=== PATIENT | male | born 1985 | race Caucasian/White ===

== ENCOUNTER → 2020-04-30 11:51 | Outpatient (CLI) | payer OTHER, SELFPAY | PROVIDERS: Visit Provider Internal Medicine Pulmonary Disease | DX: Z22.7 Latent tuberculosis (principal) | CPT/HCPCS: 87070; 87116; 87186; 87205; 87206 ==

== ENCOUNTER → 2020-05-01 08:32 | Outpatient (CLI) | payer OTHER, SELFPAY | PROVIDERS: Visit Provider Internal Medicine Pulmonary Disease | DX: Z22.7 Latent tuberculosis (principal); Z72.0 Tobacco use | CPT/HCPCS: 87116; 87186; 87206 ==

== ENCOUNTER → 2020-05-02 13:00 | Outpatient (CLI) | payer OTHER, SELFPAY | PROVIDERS: Visit Provider Internal Medicine Pulmonary Disease | DX: Z22.7 Latent tuberculosis (principal) | CPT/HCPCS: 87116; 87186; 87206 ==

== ENCOUNTER → 2020-05-25 09:48 | Outpatient (CLI) | payer OTHER, SELFPAY ==
--- NOTE | 2020-05-25 09:51 | XR_ITS ---
PROCEDURE: XR ORBIT BILATERAL MIN 4V CLINICAL INDICATION: metal in facial tissue around eye COMPARISON: No exams were available for comparison FINDINGS: A metallic density measuring 6 mm overlies the superior aspect of right maxillary sinus. The patient reported this was present on a previous MRI and did cause pain during that exam. This patient is therefore considered unsafe for MRI examination. IMPRESSION: Metallic foreign body over the right maxillary sinus superiorly Dictated by: Fabio Sherwood MD 05/25/2020 16:07 Fabio Sherwood MD in [facility] 05/25/2020 16:07
== END ==
PROVIDERS: PCP Internal Medicine Pulmonary Disease; Visit Provider Internal Medicine Pulmonary Disease
DX: S00.85XA Superficial foreign body of other part of head, initial encounter (principal)
CPT/HCPCS: 70200

== ENCOUNTER → 2020-06-07 13:40 | Outpatient (CLI) | payer OTHER, SELFPAY ==
--- NOTE | 2020-06-07 13:40 | CT_ITS ---
PROCEDURE: CT LUMBAR SPINE WO/W CON Referring Doctor: Khadra Khalil Patient Age:34Y CLINICAL HISTORY: To rule out paraspinal abscess, cannot get an MRI COMPARISON: No exams were available for comparison TECHNIQUE: Pre and postcontrast imaging performed. Postcontrast images performed after 7 5 cc Optiray 350 IV contrast Axial images obtained with sagittal and coronal reformats. All CT scans at the facility use one or more dose reduction, viz: automated exposure control, ma/kV adjustment per patient size (including targeted exams where dose is matched to indication, i.e. head), or iterative reconstruction technique. FINDINGS: The lumbar vertebral bodies are intact with no fractures, no erosions. No remarkable Schmorl's nodes at lumbar region. Disc spaces are well maintained throughout lumbar spine. Today's study and images include the lower T-spine but these images show some mild disc space narrowing at T11/12 with [id number] size Schmorl's nodes at inferior T11 of which appear well-corticated stable and longstanding. We see no perispinal abscess nor paraspinal fat inflammation at this level. Nor at other levels throughout visualized lumbar spine.. No endplate erosion or destructive changes to raise concern. . The lumbar disc intact at all levels with no disc herniation or significant appearing bulge. The facets intact with normal relationships in appearance. Only note minimal ligament flavum hypertrophy at lower levels L-spine. The postcontrast images show no abnormal areas of enhancement On final review I would note that there are increased number of moderate size retroperitoneal nodes is seen diffusely throughout the left periaortic region. These do not appear to measure over 10 mm in the short axis and thus not pathologically enlarged there is clear increased in number nodes along with subtle hazy appearance to the left periaortic fat.. You may want to consider a follow-up CT abdomen and pelvis with contrast in follow-up over the next few weeks to further survey these nodes, as well as lymph nodes elsewhere, particularly of concern should persist.. No other retroperitoneal process. Of the above features can be seen on numerous axial slices as well as evident on coronal image 9-6 A generous stool at sigmoid colon noted IMPRESSION: 1.. No evidence of discitis nor disc space infection by CT. No paraspinal mass or findings. . The lumbar disc spaces appear intact and normal . The lumbar vertebral bodies intact and unremarkable 2. Mild degenerative disc changes T11/12 noted Mild narrowing at T11/12 disc space with well-corticated longstanding stable appearing typical Schmorl's nodes inferior endplate T11. 3. Incidentally note increased number of moderate size lymph nodes diffusely throughout the left periaortic region, associated with very subtle hazy fat left periaortic region.. This is nonspecific observation but may benefit from follow-up CT abdomen and pelvis with contrast to provide better detail here, particularly if abdominal or back symptoms should persist/progress. . (Any prior outside studies for comparison would be be helpful in this regard as well) Dictated by: Petr Morales MD 06/07/2020 16:38 Petr Morales MD in [facility] 06/07/2020 16:38
[2020-06-07 16:35] LABS: Alanine Aminotransferase 18 U/L (12-78); Albumin Level 3.9 g/dl (3.5-5.0); Alkaline Phosphatase 44 U/L (38-126); Aspartate Amino Transferase 22 U/L (17-59); Bilirubin,Direct 0.1 mg/dl (0.0-0.4); Bilirubin,Indirect 0.4 mg/dL (0.0-0.9); Bilirubin,Total 0.5 mg/dl (0.2-1.3); Bilirubin,Unconjugated 0.3 mg/dL (0.0-1.1); Total Protein,Serum 6.1 g/dl (6.3-8.2)
[2020-06-09 12:03] LABS: Hep A Ab, IgM Negative (Negative); Hepatitis B Core Antibody IgM Negative (Negative); Hepatitis B Surface Antigen Negative (Negative)
[2020-06-09 16:46] LABS: Hepatitis C Antibody <0.1 s/co ratio (0.0-0.9)
== END ==
PROVIDERS: Visit Provider Internal Medicine Pulmonary Disease
DX: M54.5 Low back pain (principal); R29.898 Other symptoms and signs involving the musculoskeletal system; R61 Generalized hyperhidrosis; Z22.7 Latent tuberculosis
CPT/HCPCS: 36415; 72133; 80074; 80076; Q9967

== ENCOUNTER → 2020-06-19 19:08 | Outpatient (CLI) | payer OTHER, SELFPAY | PROVIDERS: PCP Internal Medicine Pulmonary Disease; Visit Provider Internal Medicine Pulmonary Disease | DX: G47.10 Hypersomnia, unspecified (principal); R40.0 Somnolence | CPT/HCPCS: G0399 ==

== ENCOUNTER → 2020-07-23 15:26 | Outpatient (CLI) | payer OTHER, SELFPAY ==
[2020-07-23 16:18] LABS: Alanine Aminotransferase 23 U/L (12-78); Albumin Level 4.7 g/dl (3.5-5.0); Alkaline Phosphatase 63 U/L (38-126); Aspartate Amino Transferase 26 U/L (17-59); Bilirubin,Indirect 0.4 mg/dL (0.0-0.9); Bilirubin,Total 0.4 mg/dl (0.2-1.3); Bilirubin,Unconjugated 0.4 mg/dL (0.0-1.1); Total Protein,Serum 7.2 g/dl (6.3-8.2)
[2020-07-23 16:28] LABS: Coronavirus 19 IgG Antibody Negative (Negative); Coronavirus 19 IgM Antibody Negative (Negative)
== END ==
PROVIDERS: Visit Provider Internal Medicine Pulmonary Disease
DX: Z01.818 Encounter for other preprocedural examination (principal); Z22.7 Latent tuberculosis; G47.30 Sleep apnea, unspecified
CPT/HCPCS: 36415; 80076; 86328; 95810

== ENCOUNTER → 2020-07-24 06:28 | Outpatient (CLI) | payer OTHER, SELFPAY ==
--- NOTE | 2020-07-24 06:31 | CT_ITS ---
PROCEDURE: CT ABDOMEN PELVIS W CON CLINICAL INDICATION: abdominal adenopathy f/u on enlarged lymph nodes..abd adenopathy COMPARISON: CT CT LUMBAR SPINE WO/W CON from 06/07/2020 TECHNIQUE: IV Contrast: 75ML Isovue 370 Oral Contrast None Axial images obtained with sagittal and coronal reformats. All CT scans at the facility use one or more dose reduction, viz: automated exposure control, ma/kV adjustment per patient size (including targeted exams where dose is matched to indication, i.e. head), or iterative reconstruction technique. FINDINGS: LOWER THORAX: No acute finding Or gastritis. Cannot exclude the possibility of an infiltrative process. There are scattered small retroperitoneal lymph nodes as described in the CT lumbar spine report. These do not appear significantly changed located in the left periaortic region. No intestinal obstruction or free air. There has been a prior appendectomy. There is a mild amount of retained colonic feces. No evidence of diverticulitis. The prostate is mildly prominent at 4 cm. The urinary bladder wall appears slightly thickened but could be due to nondistention. There are few small inguinal nodes but no enlarged nodes apparent. No pelvic adenopathy. No acute bony process. Small sclerotic focus is present in the right femoral neck and head and may be due to a bone island IMPRESSION: 1. Scattered small nodes are present in the left periaortic region. These do not appear significantly changed compared to the previous abdominal CT. Consider six-month follow-up to confirm stability. 2. Thickened wall of the stomach. This is nonspecific and may be due to nondistention. Gastritis is also consideration. An infiltrative process such as lymphoma is included also in the differential diagnosis. Upper endoscopy or upper GI may provide further evaluation. Dictated by: Fabio Sherwood MD 07/25/2020 12:19 Fabio Sherwood MD in [facility] 07/25/2020 12:19
== END ==
PROVIDERS: Visit Provider Internal Medicine Pulmonary Disease
DX: R59.9 Enlarged lymph nodes, unspecified (principal)
CPT/HCPCS: 74177; Q9967